=== PATIENT | male | born 1960 | race African-American/Black ===

== ENCOUNTER 2018-09-01 13:06 | Outpatient (CLI) | payer MEDICARE, OTHER ==
[~2018-09-01 13:06] MED LIST: NORCO1 E1 ORAL; PRILOSEC20 MG PO; SEROQUEL100 MG ORAL; TRAMADOL HCL50 MG ORAL; TRAZODONE HCL50 MG ORAL; VALIUM10 MG ORAL; VICODIN 5-3001 EACH PO
[2018-09-01] MEDS ORDERED: LOSARTAN POTASS25 MG ORAL (13:26)
[2018-09-01] MEDS ORDERED: CIALIS5 MG PO (13:26)
--- NOTE | 2018-09-01 14:50 | General Progress Note ---
Assessment/Plan Problem List: (1) h/o colon cancer (2) Gastritis ICD Codes: K29.70 - Gastritis, unspecified, without bleeding SNOMED: 6104087 (3) Prostate CA ICD Codes: C61 - Malignant neoplasm of prostate SNOMED: 184109210 (4) Esophagitis ICD Codes: K20.9 - Esophagitis, unspecified SNOMED: 26666143 Assessment/Plan refill ppi plan EGD and colonoscopy Subjective ROS Limited/Unobtainable: Yes Allergies: Coded Allergies: No Known Allergies (Unverified , 08/13/12) Objective General Appearance: alert EENT: normal ENT inspection Neck: supple Cardiovascular: normal rate Respiratory/Chest: lungs clear Abdomen: normal bowel sounds, non tender, soft Extremities: non-tender Porfirio Loja MD Sep 01, 2018 14:50
[2018-09-01 15:29] VITALS: BP 108/76
== END 2018-09-01 16:14 | disposition home or self-care (01) ==
LOC: PAN 13:06
DX: K29.70 Gastritis, unspecified, without bleeding (principal); C61 Malignant neoplasm of prostate; K20.9 Esophagitis, unspecified; Z85.038 Personal history of other malignant neoplasm of large intestine

== ENCOUNTER 2018-09-06 08:28 | Day surgery (SDC) | payer MEDICARE, OTHER ==
[~2018-09-06] VITALS: Ht 182.9 cm; Wt 87.1 kg
[2018-09-06] VITALS (8 sets, daily range): BP systolic 113–148; BP diastolic 73–92
[~2018-09-06 08:28] MED LIST changes: +CIALIS5 MG PO; +LOSARTAN POTASS25 MG ORAL
--- NOTE | 2018-09-06 10:10 | Pre-Procedure Note/Attestation ---
Pre-Procedure Note/Attestation Complete Prior to Procedure Planned Procedure: not applicable Procedure Narrative: esophagogastroduodenoscopy and colonoscopy Indications for Procedure Pre-Operative Diagnosis: screening colon, GERD Attestation I attest that I discussed the nature of the procedure; its benefits; risks and complications; and alternatives (and the risks and benefits of such alternatives ), prior to the procedure, with the patient (or the patient's legal leather goods sales representative). I attest that, if there was a reasonable possibility of needing a blood transfusion, the patient (or the patient's legal leather goods sales representative) was given the [facility] standardized written summary, pursuant to the Chidi Churdan Blood Safety Act ([place] Health and Safety Code # 1645, as amended). I attest that I re-evaluated the patient just prior to the surgery and that there has been no change in the patient's H&P, except as documented below: Porfirio Loja MD Sep 06, 2018 10:10
--- NOTE | 2018-09-06 10:10 | Short Stay Surgery H&P ---
History of Present Illness History of Present Illness Chief Complaint see recent office note HPI Mike Cerna is a 58 year old male who was admitted on for Colon Cancer Patient History Allergies: Coded Allergies: No Known Allergies (Unverified , 08/13/12) Medication History Scheduled Losartan Potassium* (Losartan Potassium*), Unknown Dose ORAL DAILY, (Reported) Omeprazole (Prilosec), 20 MG PO DAILY, (Reported) Quetiapine Fumarate* (Seroquel*), 100 MG ORAL DAILY, (Reported) Tadalafil (Cialis), Unknown Dose PO DAILY, (Reported) Trazodone Hcl* (Desyrel*), 50 MG ORAL BEDTIME, (Reported) Scheduled PRN Acetaminophen/Hydrocodone ([place] 7.5-325 Tablet), 1 TAB ORAL Q6H PRN for For Pain, (Reported) Diazepam* (Valium*), 10 MG ORAL PRN PRN for For Anxiety, (Reported) Tramadol Hcl* (Ultram*), 50 MG ORAL QHS PRN for For Pain, (Reported) Physical Exam Vital Signs Last Vital Signs Date Time Temp Pulse Resp B/P (MAP) Pulse Ox O2 Delivery O2 Flow Rate FiO2 09/06/18 09:11 Room Air 09/06/18 09:02 97.0 71 18 125/80 100 Plan Attestation Are the patient's medical conditions optimized for surgery? Porfirio Loja MD Sep 06, 2018 10:10
[2018-09-06] MEDS ORDERED: Propofol 200mg/20ml IV ONE (10:21)
[2018-09-06] MEDS ORDERED: Lidocaine 1% MPF 10mg/ml 5ml ONE (10:21)
--- NOTE | 2018-09-06 10:24 | Anethesia Preoperative Eval ---
Anesthesia Pre-op PMH/ROS General Date of Evaluation: Sep 06, 2018 Time of Evaluation: 10:21 Anesthesiologist: tha ASA Score: ASA 3 Mallampati Score Class I : Soft palate, uvula, fauces, pillars visible Class II: Soft palate, uvula, fauces visible Class III: Soft palate, base of uvula visible Class IV: Only hard plate visible Mallampati Classification: Class II Surgeon: salina Diagnosis: gerd Surgical Procedure: egd/colonoscopy Anesthesia History: none Social History: current smoker, alcohol use Family History: no anesthesia problems Allergies: Coded Allergies: No Known Allergies (Unverified , 08/13/12) Medications: see eMAR Patient NPO?: Yes Past Medical History Gastrointestinal/Genitourinary: Reports: other - colon cancer, prostate cancer , colon polyps Neurologic/Psychiatric: Reports: other - head trauma Anesthesia Pre-op Phys. Exam Physician Exam Last Vital Signs Date Time Temp Pulse Resp B/P (MAP) Pulse Ox O2 Delivery O2 Flow Rate FiO2 09/06/18 09:11 Room Air 09/06/18 09:02 97.0 71 18 125/80 100 Constitutional: NAD Neurologic: CN 2-12 intact Cardiovascular: RRR Respiratory: CTA Gastrointestinal: S/NT/ND Airway Exam Mallampati Score: Class II MO: limited Neck: flexible TMD: 2fb ROM: limited Anesthesia Pre-op A/P Risk Assessment & Plan Assessment: asa3 Plan: mac Status Change Before Surgery: No Pre-Antibiotics Drug: Seema Meredith MD Sep 06, 2018 10:24
[2018-09-06] MEDS ORDERED: Atropine Inj 1mg/10ml Syr IV PRN (10:30)
[2018-09-06] MEDS ORDERED: Midazolam 2mg/2ml Inj IVP PRN (10:30)
[2018-09-06] MEDS ORDERED: fentaNYL 100 mcg/2 mL IV PRN (10:30)
[2018-09-06] MEDS ORDERED: DiphenhydrAMINE 50mg/ml Inj IVP PRN (10:30)
--- NOTE | 2018-09-06 10:52 | Endoscopy Procedure Note ---
Endoscopy Procedure Note General Indication for Procedure: h/o colon cancer, GERD Procedures Performed: EGD, colonoscopy Operative Findings/Diagnosis: gastritis, hemorrhoids Specimen: yes Pt Tolerated Procedure Well: Yes Estimated Blood Loss: none Anesthesia Anesthesiologist: stephanie Anesthesia: MAC Inserted Devices Implant(s) used?: No Quality Quality of Bowel Preparation: Fair Did scope reach the cecum?: Yes Was there any complications?: No GI Core Measures 50 yrs or older w/o bx or poly: No 10yrs. F/U not recommended: Yes If not recommended, why?: Above average risk 10 yrs. F/U needed: Yes 18 years or older w/prev. colo: No Porfirio Loja MD Sep 06, 2018 10:52
--- NOTE | 2018-09-06 11:44 | 48 Hour Post Anesthesia Eval ---
Post Anesthesia Evaluation Procedure: egd/colonoscopy/bx Date of Evaluation: Sep 06, 2018 Time of Evaluation: 11:14 Blood Pressure Systolic: 124 0: 84 Pulse Rate: 80 Respiratory Rate: 18 Temperature (Fahrenheit): 97.4 O2 Sat by Pulse Oximetry: 100 Airway: patent Nausea: No Vomiting: No Pain Intensity: 0 Hydration Status: adequate Cardiopulmonary Status: stable Mental Status/LOC: patient returned to baseline Post-Anesthesia Complications: none Follow-up care needed: N/A Seema Berkowitz MD Sep 06, 2018 11:44
--- NOTE | 2018-09-06 11:44 | Immediate Post-Op Evaluation ---
Immediate Post-Op Evalulation Immediate Post-Op Evalulation Procedure: egd/colonoscopy/bx Date of Evaluation: Sep 06, 2018 Time of Evaluation: 11:12 IV Fluids: 600ml 0.9ns Blood Products: none Estimated Blood Loss: negligible Blood Pressure Systolic: 113 Blood Pressure Diastolic: 73 Pulse Rate: 79 Respiratory Rate: 18 O2 Sat by Pulse Oximetry: 100 Temperature (Fahrenheit): 97.4 Pain Score (1-10): 0 Nausea: No Vomiting: No Complications none Patient Status: awake, reacts, patent Hydration Status: adequate Drug: Seema Meredith MD Sep 06, 2018 11:44
--- NOTE | 2018-09-06 18:15 | Procedure Note ---
DATE OF PROCEDURE: 09/06/2018 SURGEON: Porfirio Loja M.D. PROCEDURE: Upper endoscopy with biopsy and colonoscopy. ANESTHESIA: Per Dr. Pa. INSTRUMENT: Olympus adult flexible upper endoscope and colonoscope. REASON FOR PROCEDURE: The procedure, risks, benefits, and possible consequences, including hemorrhage, aspiration, perforation and infection, and alternative treatments, were explained to the patient/legal guardian by Dr. Porfirio Loja and the patient/legal guardian understood and accepted these risks. INDICATION: 1. History of colon cancer. Last colonoscopy in 2015. 2. Chronic GERD and abdominal pain. PROCEDURE IN DETAIL: After informed consent was obtained and the patient was adequately sedated, Olympus upper endoscope was advanced from the mouth into the second portion of the duodenum and retroflexion was performed in the stomach. The patient had a small hiatal hernia. In the stomach, there was diffuse gastritis. There was some antral changes suspicious but not classical for GAVE. biopsy from the antrum was obtained. At this time, the upper endoscope was retrieved. The patient was turned over for colonoscopy. First, rectal exam was performed which was for internal hemorrhoids. Then, the scope was advanced from rectum into the anastomosis. The patient had a very poor prep. I would say half of the colon was not examined given this prep. There was no obvious active bleeding. No obvious large tumor was seen but given this prep, we cannot rule out small polyps. Retroflexion of rectum showed evidence of internal hemorrhoids. SUMMARY OF FINDINGS: 1. Questionable GAVE status post biopsy. 2. Small hiatal hernia. 3. Poor colonic prep. 4. Hemorrhoids. RECOMMENDATIONS: 1. Follow up biopsy results and treat accordingly. 2. Given this poor prep, recommend repeat colonoscopy in one year. I want to thank Dr. Rayo Loera for this kind referral. Porfirio Loja M.D. DR: Allyn JOB#: [id number] CC: Rayo Loera M.D.; Fax#: [phone]
== END 2018-09-06 13:55 | disposition home or self-care (01) ==
LOC: GAS 08:28
DX: K21.9 Gastro-esophageal reflux disease without esophagitis (principal); R10.9 Unspecified abdominal pain; Z85.038 Personal history of other malignant neoplasm of large intestine; K44.9 Diaphragmatic hernia without obstruction or gangrene; K64.8 Other hemorrhoids; Z85.46 Personal history of malignant neoplasm of prostate; K29.70 Gastritis, unspecified, without bleeding
CPT/HCPCS: 43239; 45378; J2704; J3010; 94003; 94150

== ENCOUNTER 2018-09-16 13:32 | Outpatient (CLI) | payer MEDICARE, OTHER ==
--- NOTE | 2018-09-16 13:59 | General Progress Note ---
Assessment/Plan Problem List: (1) h/o colon cancer (2) Prostate CA ICD Codes: C61 - Malignant neoplasm of prostate SNOMED: 190837959 (3) Gastritis ICD Codes: K29.70 - Gastritis, unspecified, without bleeding SNOMED: 2496211 (4) Esophagitis ICD Codes: K20.9 - Esophagitis, unspecified SNOMED: 25414279 Assessment/Plan: cont ppi plan repeat colonoscopy next year given ppor prep and h/o colon cancer Subjective ROS Limited/Unobtainable: Yes Allergies: Coded Allergies: No Known Allergies (Unverified , 08/13/12) Objective General Appearance: alert EENT: normal ENT inspection Neck: supple Cardiovascular: normal rate Respiratory/Chest: lungs clear Abdomen: normal bowel sounds, non tender, soft Extremities: non-tender Porfirio Ljoa MD Sep 16, 2018 13:59
== END 2018-09-16 15:52 | disposition home or self-care (01) ==
LOC: PAN 13:32
DX: K20.9 Esophagitis, unspecified (principal); K29.70 Gastritis, unspecified, without bleeding; C61 Malignant neoplasm of prostate; Z85.038 Personal history of other malignant neoplasm of large intestine
CPT/HCPCS: 99212

== ENCOUNTER → 2020-07-27 | Day surgery (SDC) | payer MEDICARE, OTHER ==
[2020-07-27] VITALS (7 sets, daily range): BP systolic 93–129; BP diastolic 66–76
[~2020-07-27] VITALS: Ht 182.9 cm; Wt 93.0 kg
[~2020-07-27] MED LIST changes: +DiphenhydrAMINE 50mg/ml Inj IVP PRN; +JANUVIA25 MG ORAL; +LR 1000ml 1,000 ML IVLG SCH
--- NOTE | 2020-07-27 10:09 | Anethesia Preoperative Eval ---
Anesthesia Pre-op PMH/ROS General Date of Evaluation: Jul 27, 2020 Anesthesiologist: Godfrey ASA Score: ASA 4 Mallampati Score Class I : Soft palate, uvula, fauces, pillars visible Class II: Soft palate, uvula, fauces visible Class III: Soft palate, base of uvula visible Class IV: Only hard plate visible Mallampati Classification: Class II Surgeon: Freedom Diagnosis: GERD, colon cancer Surgical Procedure: egd and colonoscopy Anesthesia History: none Social History: alcohol use Family History: no anesthesia problems Allergies: Coded Allergies: No Known Allergies (Unverified , 07/27/20) Medications: see eMAR Patient NPO?: Yes NPO Date: Jul 27, 2020 NPO Time: 00:00 Past Medical History Cardiovascular: Reports: HTN, valve dz, arrhythmia; Denies: CAD, IA, other Pulmonary: Reports: other - h/o lung resection, unknown reason; Denies: asthma, COPD, [place] Gastrointestinal/Genitourinary: Reports: GERD, other - h/o colon cancer, hiatal hernia, h/o prostate cancer; Denies: CRI, ESRD Neurologic/Psychiatric: Reports: depression/anxiety, other - 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 Exam Physician Exam see chart Constitutional: NAD Cardiovascular: other Respiratory: other - distant breath sounds, diminished bilaterally Airway Exam Mallampati Score: Class II MO: limited ROM: limited Anesthesia Pre-op A/P Labs see chart Studies Pre-op Studies: EKG Risk Assessment & Plan Assessment: ASA IV Plan: MAC Status Change Before Surgery: No Pre-Antibiotics Drug: N/A Hodan Donahue MD Jul 27, 2020 10:09
--- NOTE | 2020-07-27 13:42 | Short Stay Surgery H&P ---
History of Present Illness History of Present Illness Chief Complaint see office note HPI Mike Cerna is a 60 year old male who was admitted on for Gerd,Colon Screening Patient History Allergies: Coded Allergies: No Known Allergies (Unverified , 07/27/20) Medication History Scheduled Losartan Potassium* (Losartan Potassium*), Unknown Dose ORAL DAILY, (Reported) Omeprazole (Prilosec), 20 MG PO DAILY, (Reported) Quetiapine Fumarate* (Seroquel*), 100 MG ORAL DAILY, (Reported) Sitagliptin* (Januvia*), 25 MG ORAL DAILY, (Reported) Tadalafil (Cialis), Unknown Dose PO DAILY, (Reported) Trazodone Hcl* (Desyrel*), 50 MG ORAL BEDTIME, (Reported) Scheduled PRN Acetaminophen/Hydrocodone ([place] 7.5-325 Tablet), 1 TAB ORAL Q6H PRN for For Pain, (Reported) Diazepam* (Valium*), 10 MG ORAL PRN PRN for For Anxiety, (Reported) Tramadol Hcl* (Ultram*), 50 MG ORAL QHS PRN for For Pain, (Reported) Physical Exam Vital Signs Last Vital Signs Date Time Temp Pulse Resp B/P (MAP) Pulse Ox O2 Delivery O2 Flow Rate FiO2 07/27/20 10:21 97.4 76 20 107/76 96 Room Air Plan Attestation Are the patient's medical conditions optimized for surgery? Porfirio Loaj MD Jul 27, 2020 13:42
--- NOTE | 2020-07-27 13:42 | Pre-Procedure Note/Attestation ---
Pre-Procedure Note/Attestation Complete Prior to Procedure Planned Procedure: not applicable Procedure Narrative: esophagogastroduodenoscopy and colonoscopy Indications for Procedure Pre-Operative Diagnosis: h/o colon cancer, GERD Attestation I attest that I discussed the nature of the procedure; its benefits; risks and complications; and alternatives (and the risks and benefits of such a lternatives), prior to the procedure, with the patient (or the patient's legal route sales representative). I attest that, if there was a reasonable possibility of needing a blood transfusion, the patient (or the patient's legal route sales representative) was given the [facility] standardized written summary, pursuant to the Chidi [place] Blood Safety Act ([place] Health and Safety Code # 1645, as amended). I attest that I re-evaluated the patient just prior to the surgery and that there has been no change in the patient's H&P, except as documented below: Porfirio Loja MD Jul 27, 2020 13:42
--- NOTE | 2020-07-27 13:47 | Endoscopy Procedure Note ---
Endoscopy Procedure Note General Indication for Procedure: h/o colon cance, GERD Procedures Performed: EGD, colonoscopy Operative Findings/Diagnosis: gastritis Specimen: yes Pt Tolerated Procedure Well: Yes Estimated Blood Loss: none Anesthesia Anesthesiologist: susie Anesthesia: MAC Inserted Devices Implant(s) used?: No Quality Quality of Bowel Preparation: Good Did scope reach the cecum?: Yes Was there any complications?: No GI Core Measures 50 yrs or older w/o bx or poly: No 10yrs. F/U recommended: Yes If not recommended, why?: Above average risk 18 years or older w/prev. colo: Yes <3yrs. since last colonoscopy: No Porfirio Loja MD Jul 27, 2020 13:47
--- NOTE | 2020-07-27 14:06 | Immediate Post-Op Evaluation ---
Immediate Post-Op Evalulation Immediate Post-Op Evalulation Procedure: egd and colonoscopy Date of Evaluation: Jul 27, 2020 Time of Evaluation: 14:07 IV Fluids: 400 Blood Products: 0 Estimated Blood Loss: 0 Urinary Output: 0 Blood Pressure Systolic: 93 Blood Pressure Diastolic: 71 Pulse Rate: 75 Respiratory Rate: 16 O2 Sat by Pulse Oximetry: 100 Temperature (Fahrenheit): 97.2 Pain Score (1-10): 0 Nausea: No Vomiting: No Complications 0 Patient Status: awake, reacts, patent, none Hydration Status: adequate Drug: N/A Hodan Donahue MD Jul 27, 2020 14:05
--- NOTE | 2020-07-27 14:07 | 48 Hour Post Anesthesia Eval ---
Post Anesthesia Evaluation Procedure: egd and colonoscopy Date of Evaluation: Jul 27, 2020 Airway: patent Nausea: No Vomiting: No Pain Intensity: 0 Hydration Status: adequate Cardiopulmonary Status: at baseline Mental Status/LOC: patient returned to baseline Post-Anesthesia Complications: 0 Follow-up care needed: ready to discharge Hodan Donahue MD Jul 27, 2020 14:07
--- NOTE | 2020-07-27 16:59 | Procedure Note ---
DATE OF PROCEDURE: 07/27/2020 SURGEON: Porfirio Loja MD. PROCEDURE: Colonoscopy and endoscopy with biopsy. ANESTHESIA: Per Dr. Donahue. INSTRUMENT: Olympus adult flexible upper endoscope and colonoscope. INDICATIONS: Screening colonoscopy, history of colonic cancer, chronic GERD. REASON FOR PROCEDURE: The procedure, risks, benefits, and possible consequences, including hemorrhage, aspiration, perforation and infection, and alternative treatments, were explained to the patient/legal guardian by Dr. Porfirio Loja and the patient/legal guardian understood and accepted these risks. PROCEDURE IN DETAIL: After informed consent was obtained and the patient was adequately sedated, Olympus upper endoscope was advanced from mouth into the second portion of the duodenum and retroflexion was performed in the stomach. The patient had evidence of diffuse gastritis. Random biopsy from antrum was obtained to rule out H. pylori infection. The rest of the upper endoscopic examination grossly within normal limits. At this time, the upper endoscope was retrieved and the patient was turned over for colonoscopy. First, rectal exam was performed which positive for internal hemorrhoids. Then, the scope was advanced from the rectum into the anastomosis. Quality of prep was very good. The patient had no obvious mass or polyp seen in this colonoscopy examination. The patient had some scattered diverticula in the left colon. Retroflexion of rectum showed evidence of small nonbleeding internal hemorrhoids. SUMMARY OF FINDINGS: 1. Gastritis status post biopsy. 2. Nonbleeding internal hemorrhoids. 3. Scattered left-sided diverticulosis. RECOMMENDATIONS: 1. Follow biopsy results and treat accordingly. 2. Recommend repeat colonoscopy in 5 years. I want to thank Dr. Rayo Loera for this kind referral. Porfirio Loja M.D. DR: Allyn JOB#: [id number] CC: Rayo Loera M.D.; Fax#: [phone]
== END | disposition home or self-care (01) ==
LOC: GAS 09:56
DX: Z12.11 Encounter for screening for malignant neoplasm of colon (principal); K21.9 Gastro-esophageal reflux disease without esophagitis; Z85.038 Personal history of other malignant neoplasm of large intestine; K29.70 Gastritis, unspecified, without bleeding; K64.8 Other hemorrhoids; K57.90 Diverticulosis of intestine, part unspecified, without perforation or abscess without bleeding; Z79.899 Other long term (current) drug therapy; I10 Essential (primary) hypertension; E11.9 Type 2 diabetes mellitus without complications; M19.90 Unspecified osteoarthritis, unspecified site; E66.9 Obesity, unspecified; Z90.79 Acquired absence of other genital organ(s); F32.9 Major depressive disorder, single episode, unspecified; F41.9 Anxiety disorder, unspecified; Z85.46 Personal history of malignant neoplasm of prostate
CPT/HCPCS: 43239; 94003; G0105; U0004; 94150